=== PATIENT | female | born 1970 | race Caucasian/White ===

== ENCOUNTER 2022-05-08 12:23 | Outpatient (CLI) | payer MEDICARE, SELFPAY ==
--- NOTE | ~2022-05-08 | MR_ITS ---
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 Sequences included sagittal T2-weighted FSE, sagittal T2-weighted FS FSE, and sagittal and axial T1-weighted FSE. Postcontrast sequences included axial T2-weighted FSE, sagittal T1-weighted FSE, and axial and sagittal T1-weighted FS FSE. COMPARISON: None FINDINGS: 3 degree lumbar levocurvature. Sagittal alignment is normal. Magnetic field artifact surrounding inte rbody bone graft cages for anterior spinal fusion at L4-L5 and L5-S1. Chronic appearing mild anterior wedging at T11 and L1. Normal marrow signal. Mild disc height loss at T11-T12, L2-L3 and mild to mo derate disc height loss at L3-L4. The conus medullaris terminates at L2. There is normal signal and n o abnormally enhancing lesions in the caudal spinal cord. Paravertebral soft tissues are unremarkable . No abnormally enhancing lesions identified. The following disc levels are specifically discussed: T12-L1: The disc does not extend beyond the endplate margin. There is mild bilateral facet joint oste oarthritis. There is no neural foraminal stenosis. There is no central canal stenosis. L1-L2: Small right paracentral disc protrusion. There is mild bilateral facet joint osteoarthritis. T here is mild right neural foraminal stenosis. There is minimal central canal stenosis. L2-L3: Disc is mildly bulging. There is mild bilateral facet joint osteoarthritis. There is mild bila teral neural foraminal stenosis. There is mild central canal stenosis. L3-L4: Disc is bulging with superimposed small central disc extrusion with disc material extending up to 3 mm caudal to the level of the superior endplate of L4. There is hypertrophy of the ligamentum f lavum. There is moderate bilateral facet joint osteoarthritis. There is moderate left and mild to mo derate right neural foraminal stenosis. There is mild central canal stenosis. L4-L5: Fusion procedure at the disc space. There is mild bilateral facet joint osteoarthritis. There is mild to moderate bilateral neural foraminal stenosis. There is no central canal stenosis. L5-S1: Fusion procedure at the disc space. There is mild to moderate bilateral facet joint osteoarthr itis with developing fusion along the peripheral margins of the joint spaces. There is mild bilateral neural foraminal stenosis. There is no central canal stenosis. IMPRESSION: 1. Mild to moderate lumbar spondylosis with expected appearance of anterior spinal fusion with interb juarez bone graft cage at L4-L5 and L5-S1. Reviewed, dictated and finalized at location A. ER ANALYST IMPRESSION: 1. Mild to moderate lumbar spondylosis with expected appearance of anterior spi nal fusion with interbody bone graft cage at L4-L5 and L5-S1.
== END 2022-05-08 12:24 ==
PROVIDERS: PCP Family Medicine; Visit Provider Physical Medicine & Rehabilitation
DX: M96.1 Postlaminectomy syndrome, not elsewhere classified (principal); M47.816 Spondylosis without myelopathy or radiculopathy, lumbar region
CPT/HCPCS: 72158; A9577

== ENCOUNTER 2023-12-29 07:07 | Outpatient (CLI) | payer MEDICARE, SELFPAY ==
--- NOTE | ~2023-12-29 | MR_ITS ---
EXAMINATION: MR lumbar spine wo con DATE: 12/29/2023 07:43 INDICATION: Lumbar radiculopathy. TECHNIQUE: Magnetic resonance imaging (MRI) of the lumbar spine was performed without intravenous con trast. Sequences included sagittal T2-weighted FSE, sagittal T2-weighted FS FSE, sagittal T1-weighted FSE, and axial T2-weighted FSE. COMPARISON: Lumbar spine MRI 05/08/2022 FINDINGS: Bone alignment is normal. There is mild chronic anterior wedging of T11 and L1 vertebral rupa dies. There are changes of anterior fusion procedures at L4-L5 and L5-S1. There is mildly decreased d isc height at L1-L2, L2-L3, and L3-L4. The conus medullaris is at L1-L2. There is clumping of the cau da equina at L4, consistent with arachnoiditis. The following disc levels are specifically discussed: L1-L2: The disc is bulging. There is mild bilateral facet joint osteoarthritis. There is no neural fo raminal stenosis. There is mild central canal stenosis. L2-L3: The disc is bulging. There is moderate bilateral facet joint osteoarthritis. There is no neura l foraminal stenosis. There is mild central canal stenosis. L3-L4: The disc is bulging. There is severe bilateral facet joint osteoarthritis. There is mild bilat eral neural foraminal stenosis. There is mild central canal stenosis. L4-L5: There is mild bilateral facet joint osteoarthritis. There is mild bilateral neural foraminal s tenosis. There is no central canal stenosis. L5-S1: There is no facet joint hypertrophy. There is no neural foraminal stenosis. There is no centra l canal stenosis. IMPRESSION: 1. Stable mild lumbar spondylosis. 2. Anterior fusion procedures at L4-L5 and L5-S1. 3. Arachnoiditis. Reviewed, dictated and finalized at location A.
== END 2023-12-29 07:08 | disposition home or self-care (01) ==
PROVIDERS: PCP Physician Assistant; Visit Provider Physical Medicine & Rehabilitation Pain Medicine
DX: M47.26 Other spondylosis with radiculopathy, lumbar region (principal); G03.9 Meningitis, unspecified
CPT/HCPCS: 72148

== ENCOUNTER 2024-02-07 13:58 | Outpatient (CLI) | payer MEDICARE, SELFPAY ==
--- NOTE | ~2024-02-07 | CT_ITS ---
EXAMINATION: CT thoracic spine wo con DATE: 02/07/2024 14:37 INDICATION: Back pain. TECHNIQUE: Computed tomography (CT) of the thoracic spine was performed without intravenous contrast. Automated exposure control and iterative reconstruction technique were employed. The dose-length pro duct was 545.23 mGy-cm. COMPARISON: None FINDINGS: There is an aberrant right subclavian artery. There is 10 degrees dextroscoliosis of thorac ic spine. There is mild chronic anterior wedging of T6, T7, and T11 vertebral bodies. There is mildly decreased disc height at multiple levels. There is moderately decreased disc height at T4-T5, severe ly decreased disc height at T5-T6, and moderately decreased disc height at T6-T7. There is multilevel [id number] facet joint osteoarthritis. On the right, there is mild neural foraminal stenosis a t T1-T2. There is no central canal stenosis. There is an intrathecal catheter with tip at T8-T9. IMPRESSION: 1. Moderate thoracic spondylosis. 2. Thoracic dextroscoliosis. Reviewed, dictated and finalized at location A. VERY DRIVER
== END 2024-02-07 13:59 | disposition home or self-care (01) ==
PROVIDERS: PCP Physician Assistant; Visit Provider Physical Medicine & Rehabilitation Pain Medicine
DX: M47.814 Spondylosis without myelopathy or radiculopathy, thoracic region (principal); M41.84 Other forms of scoliosis, thoracic region
CPT/HCPCS: 72128

== ENCOUNTER 2024-03-25 10:07 | Outpatient (CLI) | payer MEDICARE, SELFPAY ==
[2024-03-25 12:04] LABS: Alanine Aminotransferase 22 U/L (6-35); Albumin Level 4.3 g/dL (3.5-5.1); Alkaline Phosphatase 149 U/L (38-126); Anion Gap 5 mmol/L (4-12); Aspartate Amino Transferase 35 U/L (14-36); Bilirubin,Total 0.5 mg/dL (0.2-1.3); Blood Urea Nitrogen 21 mg/dL (7-17); Calcium 9.3 mg/dL (8.4-10.2); Carbon Dioxide 30 mmol/L (22-30); Chloride 105 mmol/L (98-107); Estimated Glomerular Filt Rate > 60; Glucose 80 mg/dL (65-110); Potassium 4.3 mmol/L (3.4-5.0); Sodium 140 mmol/L (137-145)
[2024-03-25 12:15] LABS: Partial Thromboplastin Time 25.9 Seconds (22.3-36.8)
[2024-03-26 10:09] LABS: Prothrombin Time 13.8 Seconds (11.1-14.7)
== END 2024-03-25 10:08 | disposition home or self-care (01) ==
PROVIDERS: PCP Physician Assistant
DX: Z01.812 Encounter for preprocedural laboratory examination (principal); M54.16 Radiculopathy, lumbar region
CPT/HCPCS: 36415; 80053; 85610; 85730

== ENCOUNTER 2024-03-26 11:37 | Outpatient (CLI) | payer MEDICARE, SELFPAY ==
[2024-03-26 12:09] LABS: Basophils Absolute Auto 0.1 K/mm3 (0.0-0.1); Basophils Percent Auto 1.2 % (0.2-1.2); Eosinophils Absolute Auto 0.1 K/mm3 (0-0.3); Eosinophils Percent Auto 1.2 % (0-4.4); Hematocrit 39.6 % (37.0-47.0); Immature Granulocyte Absolute 0.01 K/mm3 (0.00-0.031); Immature Granulocyte Percent A 0.2 % (0-0.5); Lymphocytes Absolute Auto 1.03 K/mm3 (0.9-3.2); Mean Corpuscular HGB Conc 32.8 g/dl (32-36); Mean Corpuscular Hemoglobin 31.9 pg (26-34); Mean Corpuscular Volume 97.3 fl (80-100); Mean Platelet Volume 9.8 fl (7.4-10.4); Monocytes Absolute Auto 0.4 K/mm3 (0.1-0.6); Monocytes Percent Auto 8.6 % (2.6-8.5); Neutrophils Absolute Auto 2.8 K/mm3 (1.3-6.7); Neutrophils Percent Auto 64.8 % (45.5-73.1); Platelet Count Result 167 k/mm3 (150-375); Red Blood Count 4.07 M/mm3 (4.2-5.4); Red Cell Distribution Width 11.9 % (11.5-14.5); White Blood Count 4.3 K/mm3 (4.5-10.0)
== END 2024-03-26 11:38 | disposition home or self-care (01) ==
LOC: ANHLAB 11:56
PROVIDERS: PCP Physician Assistant
DX: Z01.812 Encounter for preprocedural laboratory examination (principal); M54.16 Radiculopathy, lumbar region
CPT/HCPCS: 36415; 85025